=== PATIENT | male | born 1985 | race Caucasian/White ===

== ENCOUNTER 2017-11-13 13:09 | Emergency (ER) | payer MEDICAID, OTHER ==
[2017-11-13] MEDS: HYDROCODONE/APAP (10/325) TAB PO (14:41)
[2017-11-13] MEDS: DIPHTH/TET/ACEL PERTUSS (ADULT) 0.5 ML VIAL IM* (14:42)
[2017-11-13] MEDS: LIDOCAINE 1% (MDV) 20 ML INJ SC (15:09)
== END 2017-11-13 15:57 | disposition home or self-care (01) ==
LOC: FTE 13:09
DX: S61.511A Laceration without foreign body of right wrist, initial encounter (principal); W26.8XXA Contact with other sharp object(s), not elsewhere classified, initial encounter; Y92.89 Other specified places as the place of occurrence of the external cause; Z23 Encounter for immunization
CPT/HCPCS: 12001; 73110-RT; 90471; 90715; 99283-25

== ENCOUNTER 2017-11-15 20:12 | Emergency (ER) | payer MEDICAID | END 2017-11-15 22:05 | disposition home or self-care (01) | LOC: FTE 20:12 | DX: Z48.01 Encounter for change or removal of surgical wound dressing (principal) | CPT/HCPCS: 99281 ==